=== PATIENT | male | born 1945 | race Caucasian/White ===

== ENCOUNTER 2018-01-16 05:27 | Day surgery (SDC) | payer OTHER, BC ==
[~2018-01-16] VITALS: Ht 182.9 cm; Wt 136.1 kg
--- NOTE | ~2018-01-16 | H ---
[facility] [place] [address] HISTORY AND PHYSICAL Name: NOHELIA RAYMUNDO Room #: 150-6 [facility].#: [id number] Admission: 01/16/18 Attend Phys: Mamadou Guo MD Discharge: Date of : 47 Report #: [id number] THIS REPORT FOR: //name// CC: Tone López DO Mamadou Guo DATE OF SERVICE: 01/13/2018 PATIENT OF: Dr. Tone López and Dr. Mamadou Guo. DATE OF ADMISSION AND SURGERY: 01/16/2018. CHIEF COMPLAINT: Lump in the groin. HISTORY OF PRESENT ILLNESS: The patient is a 72-year-old white male who in June, found a lump in his right groin. He states he has been having some mild discomfort from this, but denies any changes in bowel or bladder habits. He does have a history of multiple myeloma and benign prostatic hypertrophy. Last colonoscopy was in 04/2016 and he had some polyps removed by Dr. Villa. He saw Dr. López, who recommended surgical consultation. PAST MEDICAL HISTORY: Arthritis, multiple myeloma, history of a PE, stem cell transplant in 2015 and left total knee replacement in 2013. MEDICATIONS: Acyclovir, Aleve, fexofenadine, gabapentin, aspirin, finasteride, cholecalciferol, Robitussin-DM, calcium, Tylenol, fish oil, red yeast rice, multivitamin and turmeric. ALLERGIES: REVLIMID. FAMILY HISTORY: Noncontributory. SOCIAL HISTORY: . Quit smoking in 2008. Drinks alcohol occasionally. He is retired. REVIEW OF SYSTEMS: Pertinent positives as above. Full review of systems as per the electronic medical record, is reviewed by myself. PHYSICAL EXAMINATION: GENERAL: Well-developed, well-nourished white male, in no acute distress. VITAL SIGNS: Stable. He is afebrile. Height 6 feet, weight is 303 pounds and BMI of 41. HEENT: Sclerae are nonicteric. Mucous membranes moist and pink. NECK: There is no adenopathy. LUNGS: Clear to auscultation bilaterally. Normal excursion. [facility] [address] [place] [address] HISTORY AND PHYSICAL Name: NOHELIA RAYMUNDO Room #: 150-6 [facility]#: [id number] Admission: 01/16/18 Attend Phys: Mamadou Guo MD Discharge: Date of : 47 Report #: [id number] CARDIOVASCULAR EXAMINATION: Regular rate and rhythm. No murmurs, S3 or S4. No PMI. ABDOMEN: Obese, soft, flat and nontender. No palpable masses, no organomegaly, no hernias. GENITOURINARY: Normal scrotum, phallus and testes. There is a palpable right inguinal hernia which is partially reducible and slightly tender. EXTREMITIES: No clubbing, cyanosis or edema. NEUROLOGICAL EXAMINATION: Intact, with a clear mental status. No focal motor or sensory deficits. IMPRESSION: A 72-year-old white male with a right inguinal hernia. I fully discussed with the patient the diagnosis, prognosis and treatment options. I have recommended a right inguinal hernia repair. He states he understands and agrees to proposed surgery. PLAN: We will perform a right inguinal hernia repair with mesh under general anesthesia as an outpatient at [facility]. The procedure and its risks, benefits and possible complications were fully discussed with the patient. He states he understands and agrees to proposed surgery. <ELECTRONICALLY SIGNED> By: Mamadou Guo MD 01/16/18 1609 [id number] Mamadou Guo MD /nt
--- NOTE | ~2018-01-16 | O ---
[facility] [place] [address] OPERATIVE REPORT Name: NOHELIA RAYMUNDO Room #: DEP [facility].#: [id number] Admission: 01/16/18 Attend Phys: Mamadou Gou MD Discharge: 01/16/18 Date of : 47 Report #: [id number] THIS REPORT FOR: //name// CC: Tone Amado DATE OF SERVICE: 01/16/[address] Mamadou Guo and Dr. Tone López. PREOPERATIVE DIAGNOSIS: Right inguinal hernia. POSTOPERATIVE DIAGNOSIS: Large incarcerated right inguinal hernia. PROCEDURE: Repair of an incarcerated complicated right inguinal hernia with Prolene hernia system mesh. SURGEON: Mamadou Guo MD ANESTHESIA: General. DESCRIPTION OF PROCEDURE: The patient was brought to the operating room and placed on operative table in the supine position. Sequential compression devices were in place for DVT prophylaxis. There was no indication for preoperative antibiotics. The skin and subcutaneous tissue were then infiltrated with 0.5% Marcaine. A right inguinal skin incision was then performed using a #10 scalpel blade. Hemostasis obtained using electrocautery. Dissection was carried down through subcutaneous tissue. There was a large incarcerated inguinal scrotal hernia. This hernia sac was dissected free and followed back down to the external oblique fascia. The external oblique fascia was then opened and the cord and hernia sac were then dissected free using the electrocautery and blunt dissection. Darwin drain was placed around the cord. The hernia sac was then dissected free from the cord using the electrocautery as well as clamps and 2-0 chromic ties. Due to the size of the patient and the size of this hernia, the incarceration, this operation took over 2 hours, which was more than double the normal operative time. The hernia sac represented a sliding incarcerated direct and indirect inguinal hernia. The sac was dissected free and reduced back through the floor and the internal ring. Preperitoneal space was then developed. An extended Prolene hernia system mesh was then inserted through the internal ring and the underlay patch was then deployed into the preperitoneal space. The floor was then tightened around the connector using running 0 Prolene suture. The overlay patch was then deployed into the inguinal canal and secured at the pubic tubercle with the same running 0 Prolene suture. The mesh was split and wrapped around the cord, secured to the inguinal ligament with the 0 Prolene suture. Mesh was secured superiorly at the [facility] [address] [place] [address] OPERATIVE REPORT Name: NOHELIA RAYMUNDO Room #: DEP [facility]#: [id number] Admission: 01/16/18 Attend Phys: Mamadou Guo MD Discharge: 01/16/18 Date of : 47 Report #: [id number] connector using simple interrupted 2-0 Vicryl sutures. The cord was then returned to the canal intact. The external oblique fascia was then closed using a running 2-0 Vicryl suture. Ary's fascia was then reapproximated using 3 simple interrupted 2-0 chromic sutures. An additional subcutaneous tissue was reapproximated using simple interrupted 2-0 chromic sutures. The skin was then closed using running 4-0 subcuticular Vicryl stitch. Wound was then dressed with Mastisol, 1/2-inch Steri-Strips cut in half, Telfa, 4 x 4 gauze, sponge and tape. The patient was then awakened from the general anesthesia and taken to recovery room in good condition. Estimated blood loss was approximately 20 mL, and the patient tolerated procedure well. All sponge, lap and instrument counts correct times 2. <ELECTRONICALLY SIGNED> By: Mamadou Guo MD 01/21/18 1306 1607 1810 Mamadou Guo MD /nt
[~2018-01-16 05:27] MED LIST: ALEVE220 MG PO; ALLER-EASE180 MG PO; ASPIR 8181 M1 PO; CALCIUM 600 +1 EAC1 PO; FISH OIL 1,2001 EAC4 PO; MULTIVITAMINS1 EAC7 PO; NEURONTIN300 MG PO; PROSCAR 5MG TABL5 MG PO; RED YEAST RICE600 MG PO; TURMERIC500 M2 PO; TYLOPHEN500 MG PO; VELCADE3.5 MG SUBQ; VITAMIN B-6100 MG PO; VITAMIN D32000 UNI1 PO; ZOVIRAX400 MG PO
[2018-01-16 13:24] VITALS: BP 117/56
[2018-01-16] MEDS ORDERED: NORCO 5-325 TA1 EACH PO (16:13)
== END 2018-01-16 17:00 | disposition home or self-care (01) ==
LOC: OR 05:27 → TBA 05:28 → OR 12:46
DX: K40.30 Unilateral inguinal hernia, with obstruction, without gangrene, not specified as recurrent (principal); M19.90 Unspecified osteoarthritis, unspecified site; Z96.652 Presence of left artificial knee joint; Z85.79 Personal history of other malignant neoplasms of lymphoid, hematopoietic and related tissues; Z86.711 Personal history of pulmonary embolism; Z94.84 Stem cells transplant status; Z79.82 Long term (current) use of aspirin; Z79.899 Other long term (current) drug therapy; Z88.8 Allergy status to other drugs, medicaments and biological substances; Z87.891 Personal history of nicotine dependence
CPT/HCPCS: 50010; 50101; 50386; 50417; 54111; 56524; 56525; 56526; 62110; 62900; 70005